=== PATIENT | male | born 1940 | race Caucasian/White ===

== ENCOUNTER → 2016-07-22 | Outpatient (CLI) | payer MEDICARE, OTHER | END | disposition home or self-care (01) | LOC: GMAM 11:11 | PROVIDERS: ATTEND Family Medicine | DX: R97.20 Elevated prostate specific antigen [PSA] (principal) ==

== ENCOUNTER → 2016-08-06 | Outpatient (CLI) | payer MEDICARE, OTHER ==
--- NOTE | 2016-08-06 12:08 | MRI ---
EXAM DESCRIPTION: Cervical Spine CLINICAL HISTORY: 76 years,Male,RADICULOPATHY COMPARISON: None TECHNIQUE: MRI performed multiple sequences of the cervical spine. FINDINGS: The signal in the cervical vertebral bodies demonstrates multiple areas of fatty signal seen in almost all the vertebral bodies is endplate at C3-4 and C4-5 and T2-3 and the base of C2 to and in T1. The cervical cord demonstrates a small area of increased T2 signal seen in the posterior cord at the C4-5 region. And only measures about 4 mm. Surrounding soft tissues unremarkable. Dense and arch of C1: Mild to moderate hypertrophy C2-3: There is mild loss of disc height. There is mild broad-based disc bulge. Facets are mild facet hypertrophy. No neural foraminal stenosis. No spinal canal stenosis. C3-4: There is moderate loss of disc height. There is moderate broad-based disc ossify complex with uncovertebral joint osteophytes. Facets are mild to moderate facet hypertrophy. Bilateral moderate neural foraminal stenosis due to the facet disease and uncovertebral joint osteophytes. Moderate spinal canal stenosis with just slight indentation of the spinal cord. There is 7 mm of AP central spinal canal distance and mild thickening of the ligament flavum.. C4-5: There is severe loss disc height. There is moderate broad-based disc ossify complex with uncovertebral ossified.. Facets are moderately hypertrophic. Moderate to severe neural foraminal stenosis due to the uncovertebral ossifies and facet arthropathy. Moderate central spinal canal stenosis slightly indenting the spinal cord with some mild thickening of the ligament flavum. AP central distance is 6 mm. C5-6: There is moderate loss of disc height. There is moderate disc ossify complex with uncovertebral osteophyte. Facets are moderate hypertrophy worse on the right. Moderate to severe bilateral neural foraminal stenosis due to the uncovertebral ossified and facet arthropathy. Mild spinal canal stenosis with near complete obliteration of the CFS space but no indentation of the spinal cord. And mild thickening of the ligament flavum. AP central canal distance 8 mm C6-7: There is moderate to severe loss of disc height. There is mild broad-based disc ossify complex but with a moderate left uncovertebral osteophyte and mild right.. Facets are mildly hypertrophic bilaterally. Moderate to severe left and moderate to mild right neural foraminal stenosis. Minimal spinal canal stenosis. C7-T1:There is moderate to severe loss of disc height. There is mild broad-based disc ossify complex but with a more moderate right uncovertebral joint osteophyte. Facets are mild facet hypertrophy. Moderate right neural foraminal stenosis. No spinal canal stenosis. IMPRESSION: Cervical spine demonstrates disc disease and facet arthropathy throughout the entire cervical spine. Resulting in spinal canal stenosis at C3-4 through C6-7 with some mild myelomalacia changes seen at C4-5. And multiple levels of neural foraminal stenosis at these levels due to mostly uncovertebral osteophytes and facet arthropathy. Electronically signed by: Jean-Claude Moore MD 08/06/2016 12:07 PM CDT
== END | disposition home or self-care (01) ==
LOC: MRI 07:33
PROVIDERS: ATTEND Family Medicine
DX: M50.13 Cervical disc disorder with radiculopathy, cervicothoracic region (principal)

== ENCOUNTER → 2017-03-03 | Outpatient (CLI) | payer MEDICARE, OTHER | LOC: GMA 10:30 | PROVIDERS: ATTEND Family Medicine | DX: R97.20 Elevated prostate specific antigen [PSA] (principal) ==

== ENCOUNTER → 2017-03-11 | Outpatient (CLI) | payer MEDICARE, OTHER ==
--- NOTE | 2017-03-11 17:03 | MRI ---
EXAM DESCRIPTION: Brain w/o Contrast CLINICAL HISTORY: 77 years, Male, MEMORY LOSS COMPARISON: FINDINGS: Sagittal and axial sequences. Diffusion weighted sequence does not show acute infarct. Gradient sequence does not show hemorrhage. Enlarged ventricles and sulci. Ventricular enlargement is slightly more prominent than cortical atrophy. Please correlate for possible normal pressure hydrocephalus. Mild likely ischemic change periventricular white matter. Mild ethmoid sinus because thickening. Mucosal thickening with air-fluid level in the inferior left antrum. Slight septal deviation to the left. IMPRESSION: 1. No acute infarct, hemorrhage or mass. 2. Mildly prominent ventricles for age. Please correlate for possible normal pressure hydrocephalus 3. Mild microischemic change periventricular white matter four. Left maxillary sinusitis. Mild ethmoid sinus mucosal thickening. Electronically signed by: Jamarcus Trimble MD 03/11/2017 5:02 PM [facility]
== END | disposition home or self-care (01) ==
LOC: MRI 09:27
PROVIDERS: ATTEND Family Medicine
DX: R41.82 Altered mental status, unspecified (principal)

== ENCOUNTER → 2017-04-28 | Outpatient (CLI) | payer MEDICARE, OTHER ==
--- NOTE | 2017-04-28 16:59 | US ---
EXAM DESCRIPTION: Carotid Duplex CLINICAL HISTORY: 77 years, Male, ATHEROSCLEROTIC DISEASE COMPARISON: [None.] FINDINGS: Indirect estimation of percent stenosis is inferred from velocity parameters and cross referenced to published or self-generated correlations among velocity parameters. Peak systolic velocity right common carotid artery 60 centimeters/second. Peak systolic velocity right internal carotid artery 52 centimeters/second. Right ICA to CCA ratio 0.9. Antegrade flow in the right vertebral artery. Grayscale images show no significant plaque in the right carotid bifurcation. Peak systolic velocity left common carotid artery 86 centimeters/second. Peak systolic velocity left internal carotid artery 50 centimeters/second. Left ICA to CCA ratio 0.6. [Antegrade] flow in the left vertebral artery. Grayscale images show minimal calcified plaque in the left carotid bifurcation. IMPRESSION: No significant left or right-sided carotid artery stenosis. Electronically signed by: Raheel Rose MD 04/28/2017 4:58 PM [employer]
--- NOTE | 2017-04-28 17:02 | US ---
EXAM DESCRIPTION: Renal CLINICAL HISTORY: 77 years, Male, COMPLEX RENAL CYST COMPARISON: None. FINDINGS: The right kidney measures 10.5 cm in length. There is no right-sided hydronephrosis or obstructing nephrolithiasis. There are a few small uncomplicated right renal cysts measuring up to 2 cm diameter. The left kidney measures 11.2cm in length. There is no left-sided hydronephrosis or obstructing nephrolithiasis. There is a 2.8 cm round hypoechoic mid left renal cortical lesion with some low-level internal echogenicity, probably representing a complex cyst. A smaller similar appearing lesion in the superior pole of the left kidney measures 1.4 cm diameter. The bladder is not visualized on this exam. The abdominal aorta and IVC are not well visualized on this exam. IMPRESSION: Right renal cysts measuring up to 2 cm diameter with 2 small hypoechoic left renal lesions likely representing hemorrhagic or proteinaceous cysts. Renal protocol CT is recommended for confirmation and to exclude the less likely possibility of solid left renal lesion. Electronically signed by: Raheel Rose MD 04/28/2017 5:00 PM [facility]
== END | disposition home or self-care (01) ==
LOC: US 13:11
PROVIDERS: ATTEND Urology
DX: N28.1 Cyst of kidney, acquired (principal); I67.89 Other cerebrovascular disease; J01.00 Acute maxillary sinusitis, unspecified; I25.10 Atherosclerotic heart disease of native coronary artery without angina pectoris

== ENCOUNTER → 2017-09-10 | Outpatient (CLI) | payer MEDICARE, OTHER | LOC: GMAM 11:02 | PROVIDERS: ATTEND Family Medicine | DX: R41.82 Altered mental status, unspecified (principal); R97.20 Elevated prostate specific antigen [PSA] ==

== ENCOUNTER → 2017-09-14 | Outpatient (CLI) | payer MEDICARE, OTHER | LOC: GMAM 11:25 | PROVIDERS: ATTEND Family Medicine | DX: R97.20 Elevated prostate specific antigen [PSA] (principal) ==

== ENCOUNTER → 2018-02-28 | Outpatient (CLI) | payer MEDICARE, OTHER | LOC: GMAM 12:45 | PROVIDERS: ATTEND Family Medicine | DX: N40.0 Benign prostatic hyperplasia without lower urinary tract symptoms (principal) ==

== ENCOUNTER → 2018-07-06 | Outpatient (CLI) | payer MEDICARE, OTHER ==
--- NOTE | 2018-07-06 09:06 | US ---
EXAM DESCRIPTION: Renal: Ultrasound. CLINICAL HISTORY: 78 years Male COMPLEX LEFT RENAL CYST COMPARISON: Bilateral renal arterial Doppler evaluation on the same visit. TECHNIQUE: Transcutaneous scanning: Two-dimensional and Doppler modes. FINDINGS: Right kidney measures 10.5 x 5.7 x 5.2 cm; mid-renal cortical thickness normal . Increased cortical echogenicity equal to the liver. Multiple cortical cysts. 1.8 x 1.7 x 1.6 cm. 1.7 x 1.6 x 1.4 cm. 1.2 x 1.0 x 0.9 cm. No hydronephrosis No echogenic stones. Smooth contour of the kidney except for cysts, with no perinephric fluid. Normal vascularity. Proximal ureter not visualized. Left kidney measures number cm; mid-renal cortical thickness 1.4 cm.. Increased cortical echogenicity equal to the liver. Bilobed cyst measures 1.6 x 1.2 x 0.9 cm. Another cyst measures 7 x 6 x 7 mm. Third cyst measures 1.3 x 1.2 x 0.9 cm. Complex cyst/mass seen on the prior study is no longer visualized. No hydronephrosis. No echogenic stones. Smooth contour of the kidney with no perinephric fluid. Normal vascularity.. Proximal ureter not visualized. Urinary bladder was visualized. Ureteral jet in the bladder not evaluated. Prostate gland impressing on the base of the urinary bladder measuring 4.6 x 5.8 x 4.6 cm with heterogeneous echoes and central and posterior calcifications. Abdominal aorta: not measured. IMPRESSION: 1. Multiple cysts seen in the left kidney. Complex cyst seen on the prior study no longer visualized. Normal cortical thickness with increased echogenicity which could be related to aging or medical renal disease. No stones or hydronephrosis. Overall size normal. 2. Overall size of the right kidney normal with normal cortical thickness. Increased echogenicity of the cortex equal to the liver which may be related to aging or medical renal disease. Multiple cysts. No hydronephrosis or stones. 3. Enlarged prostate gland impressing on the base of the urinary bladder. Electronically signed by: Tim Germain MD 07/06/2018 9:03 AM [employer]
== END ==
LOC: US 08:00
PROVIDERS: ATTEND Urology
DX: N28.1 Cyst of kidney, acquired (principal); N40.0 Benign prostatic hyperplasia without lower urinary tract symptoms

== ENCOUNTER → 2019-02-23 | Outpatient (CLI) | payer MEDICARE, OTHER ==
--- NOTE | 2019-02-23 18:31 | US ---
EXAM DESCRIPTION: Renal: Ultrasound. CLINICAL HISTORY: 78 years Male COMPLEX LEFT RENAL CYST COMPARISON: Bilateral renal ultrasound 06 July 2018. TECHNIQUE: Transcutaneous scanning: Two-dimensional and Doppler modes. FINDINGS: Right kidney measures 11.7 x 4.9 x 4.4 cm; mid-renal cortical thickness 11 mm. . Increased cortical echogenicity. Cyst projecting from the upper cortex measures 1.8 x 1.7 x 1.7 cm. Cyst in the upper pole within the cortex measures 1.8 x 1.6 x 1.4 cm. Another cyst projecting from the upper cortex measures 1.3 x 1.2 x 1.1 cm. No hydronephrosis No echogenic stones. Lobulated contour of the kidney with no perinephric fluid. Normal vascularity. Proximal ureter not seen.. Left kidney measures 10.1 x 5.2 x 4.7 cm; mid-renal cortical thickness 11 mm.. Increased cortical echogenicity. Cyst in the upper pole cortex measures 1.0 x 0.9 x 0.8 cm. Second upper cortical cyst measures 1.0 x 1.1 x 0.9 cm. 1.2 x 0.8 x 0.6 cm cyst abutting the mid collecting system. 5.5 mm echogenic stone with minimal acoustic shadowing. No hydronephrosis. Minimally lobulated contour of the kidney with no perinephric fluid. Normal vascularity.. Proximal ureter not seen.. Urinary bladder not visualized. Abdominal aorta: not measured. IMPRESSION: 1. Multiple cysts in the left kidney with complex cyst seen on renal ultrasound in April 2017, not identified on the scan in July 2018 with the scan. Simple cysts seen in the kidneys bilaterally. 2. Minimal lobulation of the bilateral renal capsules with minimal thinning of the renal cortex and increased echogenicity is most likely related to aging. 5.5 mm fatty deposit versus echogenic stone in the left kidney, not seen on the prior study. Nonobstructing. Electronically signed by: Tim Germain MD 02/23/2019 6:29 PM CDT
== END ==
LOC: US 08:31
PROVIDERS: ATTEND Urology
DX: N28.1 Cyst of kidney, acquired (principal); N28.9 Disorder of kidney and ureter, unspecified

== ENCOUNTER → 2019-03-08 | Outpatient (CLI) | payer MEDICARE, OTHER | LOC: GMAM 10:46 | PROVIDERS: ATTEND Family Medicine | DX: I10 Essential (primary) hypertension (principal); R97.20 Elevated prostate specific antigen [PSA]; R53.83 Other fatigue; R73.9 Hyperglycemia, unspecified ==

== ENCOUNTER → 2019-11-29 | Outpatient (CLI) | payer MEDICARE, OTHER | LOC: GMAM 15:05 | PROVIDERS: ATTEND Family Medicine | DX: R97.20 Elevated prostate specific antigen [PSA] (principal); I10 Essential (primary) hypertension ==

== ENCOUNTER → 2019-12-06 | Outpatient (CLI) | payer MEDICARE, OTHER ==
--- NOTE | 2019-12-07 16:14 | US ---
EXAM DESCRIPTION: Aorta ultrasound. CLINICAL HISTORY: ABDOMINAL AORTIC ANEURYSM WITHOUT RUPTURE COMPARISON: Aorta ultrasound December 2017. TECHNIQUE: Transcutaneous scanning: Two-dimensional and Doppler modes. FINDINGS: Abdominal aorta diameter - Proximal: 3.0 x 2.9 cm. Mid: 2.3 x 1.9 cm. Distal: 2.7 x 1.9 cm. Common Iliac diameter - Right: 10 mm. Left: 13.6 mm. Other: Atherosclerotic calcifications in the aorta and iliac arteries.. IMPRESSION: 1.2.6-2.9 cm aorta, recommend follow-up every 5 years for aortas meeting the criteria for AAA (>1.5 x proximal normal segment; no f/u if < 1.5 x proximal normal segment; no f/u for aortas < 2.6 cm). 3.0-3.4 cm AAA, recommend follow-up every 3 years. Electronically signed by: Tim Germain MD 12/07/2019 4:12 PM CDT
== END ==
LOC: US 08:29
PROVIDERS: ATTEND Family Medicine
DX: I71.4 Abdominal aortic aneurysm, without rupture (principal)

== ENCOUNTER → 2020-04-03 | Outpatient (CLI) | payer MEDICARE, OTHER ==
--- NOTE | 2020-04-04 10:59 | US ---
EXAM: Renal INDICATION: 80 years Male, CHANGES IN COMPLEX LEFT RENAL CYST COMPARISON: Renal ultrasound 02/23/2019, 07/06/2018, 04/28/2017 TECHNIQUE: Renal ultrasound was performed. FINDINGS: The right kidney measures 8.8 x 4.5 x 5.4 cm. Multiple simple renal cysts are identified. A 2.8 x 1.7 x 2.4 cm complex cystic lesion in the midpole of the right kidney is new from the prior examinations, with peripheral adherent debris versus nodularity. This lesion demonstrates several echogenic foci with comet tail artifact, potentially representing tiny calcifications. The left kidney measures 10.5 x 4.9 x 4.7 cm. A 1.6 x 1.2 x 1.7 cm cyst with a thin septation is identified in the midpole left kidney, similar to the prior examination of 07/06/2018. An additional simple cyst is identified in the left kidney. Small 7 mm echogenic focus in the midpole left kidney may represent a nonobstructing stone. Mild bilateral renal cortical thinning and diffusely increased renal cortical echogenicity, similar to the prior examination. No hydronephrosis. Unremarkable appearance of the urinary bladder. The prostate gland is enlarged, heterogeneous, and nodular, measuring up to 4.8 x 4.3 x 4.7 cm. IMPRESSION: 1. 2.8 cm complex cystic/solid lesion in the midpole right kidney is new from the prior examinations. Further evaluation with renal mass protocol MRI or CT is recommended. 2. Multiple additional simple and minimally complex renal cysts are present bilaterally. 3. Renal cortical thinning and increased echogenicity is similar to the prior examination. Findings are likely reflective of chronic medical renal disease. 4. Enlarged, heterogeneous, and nodular prostate gland. Correlate with PSA. Electronically signed by: Nimco Treviño MD 04/04/2020 10:57 AM [facility]
== END ==
LOC: US 15:21
PROVIDERS: ATTEND Urology
DX: N28.1 Cyst of kidney, acquired (principal); N28.9 Disorder of kidney and ureter, unspecified; N40.0 Benign prostatic hyperplasia without lower urinary tract symptoms

== ENCOUNTER → 2020-04-11 | Outpatient (CLI) | payer MEDICARE, OTHER | LOC: GMAM 10:24 | PROVIDERS: ATTEND Family Medicine | DX: Z12.5 Encounter for screening for malignant neoplasm of prostate (principal); I10 Essential (primary) hypertension ==

== ENCOUNTER → 2020-05-07 | Outpatient (CLI) | payer MEDICARE, OTHER ==
--- NOTE | 2020-05-07 09:56 | CT ---
EXAM DESCRIPTION: Abdomen w/Contrast CLINICAL HISTORY: RENAL CYST COMPARISON: CT January 16, 2015, ultrasound April 03, 2020 TECHNIQUE: CT of the abdomen only was performed with IV contrast. This exam was performed according to our departmental dose-optimization program, which includes automated exposure control, adjustment of the mA and/or kV according to patient size and/or use of iterative reconstruction technique. FINDINGS: Multiple round low to intermediate density lesions scattered throughout both kidneys. The majority of these are uncomplicated cysts, some may contain proteinaceous or hemorrhagic fluid. Some have slightly increased in size from January,. The 2.8 cm mid right renal lesion seen on recent ultrasound is cystic in only slightly increased in size from the older CT performed in January,. No suspicious solid lesion in either kidney. No retroperitoneal adenopathy or fluid. Small hiatal hernia. No basilar lung nodule. No calcified gallstone. The liver, spleen, pancreas and adrenals are unremarkable. Visualized portions of the GI tract are unremarkable. Degenerative changes in the thoracolumbar spine including degenerative disc disease, worse at L5-S1. IMPRESSION: Multiple bilateral renal cysts, some of which likely contain proteinaceous or other complex fluid. No solid or other suspicious renal mass to correlate with findings from recent ultrasound. Electronically signed by: Raheel Rose MD 05/07/2020 9:55 AM [employer]
== END ==
LOC: CT 08:00
PROVIDERS: ATTEND Urology
DX: Z01.812 Encounter for preprocedural laboratory examination (principal); N28.1 Cyst of kidney, acquired

== ENCOUNTER → 2020-05-22 | Outpatient (CLI) | payer MEDICARE, OTHER | LOC: GMAM 14:24 | PROVIDERS: ATTEND Family Medicine | DX: I10 Essential (primary) hypertension (principal); Z13.29 Encounter for screening for other suspected endocrine disorder ==

== ENCOUNTER → 2020-06-28 | Outpatient (CLI) | payer MEDICARE, OTHER | LOC: ECHO 08:39 | PROVIDERS: ATTEND Family Medicine | DX: I50.30 Unspecified diastolic (congestive) heart failure (principal); I51.7 Cardiomegaly ==